=== PATIENT | female | born 1945 ===

== ENCOUNTER → 2023-07-26 05:00 | Outpatient (REF) | payer MEDICARE, SELFPAY ==
[2023-07-26 08:07] LABS: Hemoglobin 10.5 g/dL (12.0-15.0); Mean Corp Hgb Conc 30.9 g/dL (32-36); Mean Corpuscular Hgb 29.1 pg (27.0-32.0); Mean Corpuscular Volume 94.2 fL (81-99); Mean Platelet Vol. 10.1 fl (6.2-12.0); Platelet Count 446 K/mm3 (150-450); RBC Distribution Width SD 47.7 fl (35.1-43.9); Red Blood Count 3.61 M/mm3 (4.2-5.4); White Blood Count 7.8 K/mm3 (4.4-11.0)
== END ==
LOC: OLS.ACH 05:00
PROVIDERS: Visit Provider Internal Medicine
DX: Z47.1 Aftercare following joint replacement surgery (principal)
CPT/HCPCS: 36415; 85027